=== PATIENT | male | born 1990 | race Caucasian/White ===

== ENCOUNTER 2021-05-06 17:29 | Inpatient (IN) | payer MEDICAID, OTHER ==
--- NOTE | 2021-05-06 18:43 | ED ---
Psych HPI - General Chief Complaint: Psychiatric Symptoms Stated Complaint: EPS eval Time Seen by Provider: 05/06/21 18:20 Source: patient, RN notes reviewed Mode of arrival: ambulatory - History of Present Illness Initial Comments: 30-year-old male with a history of depression who states he ran out of his medications about 3 weeks ago he states she's been feeling depressed and suicidal since then he has not been able to get into see his doctor to get a refill. He denies any drugs or alcohol at this time is a lot of fine factors at this time MD Complaint: suicidal ideation, feels depressed - Related Data Home Medications Medication Instructions Recorded Confirmed No Known Home Medications 05/06/21 05/06/21 Allergies Allergy/AdvReac Type Severity Reaction Status Date / Time No Known Allergies Allergy Verified 05/06/21 19:19 Review of Systems ROS Statement: Those systems with pertinent positive or pertinent negative responses have been documented in the HPI. ROS Other: All systems not noted in ROS Statement are negative. Past Medical History Past Medical History: No Reported History History of Any Multi-Drug Resistant Organisms: None Reported Past Surgical History: No Surgical Hx Reported Past Psychological History: Bipolar, Depression, PTSD Smoking Status: Vaper Past Alcohol Use History: Daily, Heavy, Occasional Past Drug Use History: None Reported General Exam - General Exam Comments Initial Comments: This is a well-developed well-nourished awake alert oriented 3 male General appearance: alert, in no apparent distress Head exam: Present: atraumatic, normocephalic, normal inspection Eye exam: Present: normal appearance, PERRL, EOMI. Absent: scleral icterus, conjunctival injection, periorbital swelling ENT exam: Present: normal exam, mucous membranes moist Neck exam: Present: normal inspection, full ROM. Absent: tenderness, meningismus, lymphadenopathy Respiratory exam: Present: normal lung sounds bilaterally. Absent: respiratory distress, wheezes, rales, rhonchi, stridor Cardiovascular Exam: Present: regular rate, normal rhythm, normal heart sounds. Absent: systolic murmur, diastolic murmur, rubs, gallop, clicks GI/Abdominal exam: Present: soft, normal bowel sounds. Absent: distended, tenderness, guarding, rebound, rigid Extremities exam: Present: normal inspection, full ROM, normal capillary refill. Absent: tenderness, pedal edema, joint swelling, calf tenderness Back exam: Present: normal inspection Neurological exam: Present: alert, oriented X3, CN II-XII intact Psychiatric exam: Present: depressed, flat affect, suicidal ideation Skin exam: Present: warm, dry, intact, normal color. Absent: rash Course Vital Signs 05/06/21 17:43 Temperature 98.8 F Pulse Rate 114 H Respiratory 18 Rate O2 Sat by Pulse 97 Oximetry Medical Decision Making - Medical Decision Making Patient was evaluated by the psychiatric service she will be admitted for inpatient evaluation and treatment. - Lab Data Lab Results 05/06/21 Range/Units 18:05 Urine Color Yellow Urine Appearance Clear (Clear) Urine pH 6.0 (5.0-8.0) Ur Specific [place] 1.029 (1.001-1.035) Urine Protein Trace H (Negative) Urine Glucose (UA) Negative (Negative) Urine Ketones 1+ H (Negative) Urine Blood Negative (Negative) Urine Nitrite Negative (Negative) Urine Bilirubin Negative (Negative) Urine Urobilinogen 3.0 (<2.0) mg/dL Ur Leukocyte Esterase Negative (Negative) Urine Opiates Screen Not Detected (NotDetected) Ur Oxycodone Screen Not Detected (NotDetected) Urine Methadone Screen Not Detected (NotDetected) Ur Propoxyphene Screen Not Detected (NotDetected) Ur Barbiturates Screen Not Detected (NotDetected) U Tricyclic Antidepress Not Detected (NotDetected) Ur Phencyclidine Scrn Not Detected (NotDetected) Ur Amphetamines Screen Not Detected (NotDetected) U Methamphetamines Scrn Not Detected (NotDetected) U Benzodiazepines Scrn Not Detected (NotDetected) Urine Cocaine Screen Not Detected (NotDetected) U Marijuana (THC) Screen Not Detected (NotDetected) Disposition Clinical Impression: Depression, Suicidal ideation Disposition: TRANSFER TO PSYCH HOSP/UNIT Condition: Fair Referrals: None,Stated [Primary Care Provider] - 1-2 days
[2021-05-06 18:44] LABS: Appearance,Urine Clear (Clear); Bilirubin,Urine Negative (Negative); Blood,Urine Negative (Negative); Color,Urine Yellow; Glucose,Urine (UA) Negative (Negative); Ketones,Urine 1+ (Negative); Leukocyte Esterase,Urine Negative (Negative); Nitrite,Urine Negative (Negative); Protein,Urine Trace (Negative); Specific Gravity,Urine 1.029 (1.001-1.035)
[2021-05-06 18:54] LABS: Amphetamine Screen,Urine Not Detected (NotDetected); Barbiturate Screen,Urine Not Detected (NotDetected); Benzodiazepines Screen,Urine Not Detected (NotDetected); Cocaine Screen,Urine Not Detected (NotDetected); Methadone Screen, Urine Not Detected (NotDetected); Opiate Screen,Urine Not Detected (NotDetected); Oxycodone Screen, Urine Not Detected (NotDetected); Phencyclidine Screen,Urine Not Detected (NotDetected); Tricyclic Antidepressant,Urine Not Detected (NotDetected); Urn Cannabinoid Scrn Not Detected (NotDetected)
[2021-05-06] MEDS ORDERED: LORazepam 1 MG TAB PO STA (20:56)
[2021-05-06] MEDS ORDERED: MAG HYDROX/AL HYDROX/SIMETH 30 ML CUP PO PRN (22:52)
[2021-05-06] MEDS ORDERED: ACETAMINOPHEN TAB 325 MG TAB PO PRN (22:52)
[2021-05-06] MEDS ORDERED: HALOPERIDOL LACTATE 5 MG/ML 1 ML VIAL IM PRN (22:52)
[2021-05-06] MEDS ORDERED: MAGNESIUM HYDROXIDE 2,400 MG/10 ML CUP PO PRN (22:52)
[2021-05-06] MEDS ORDERED: LORazepam 2 MG/ML INJ IM PRN (22:55)
[2021-05-07 08:49] LABS: Basophils # (A) 0.1 k/uL (0-0.2); Basophils % (A) 1 %; Eosinophils # (A) 0.3 k/uL (0-0.7); Eosinophils % (A) 7 %; HCT 45.3 % (39.0-53.0); HGB 15.9 gm/dL (13.0-17.5); Lymphocytes # (A) 1.6 k/uL (1.0-4.8); Lymphocytes % (A) 35 %; MCH 31.4 pg (25.0-35.0); MCHC 35.1 g/dL (31.0-37.0); MCV 89.3 fL (80.0-100.0); Monocytes # (A) 0.4 k/uL (0-1.0); Monocytes % (A) 8 %; Neutrophils # (A) 2.3 k/uL (1.3-7.7); Neutrophils % (A) 48 %; Platelet Count 294 k/uL (150-450); RBC 5.08 m/uL (4.30-5.90); WBC 4.7 k/uL (3.8-10.6)
[2021-05-07] MEDS: buPROPion XL 300 MG TAB.ER.24H PO SCH (09:00)
[2021-05-07] MEDS ORDERED: NICOTINE 14MG/24HR PATCH TRANSDERM SCH (09:00)
[2021-05-07 09:09] LABS: ALT 51 U/L (4-49); AST 42 U/L (17-59); African American GFR (CKD) >90 (>60 ml/min/1.73 sqM); Albumin 4.3 g/dL (3.5-5.0); Alkaline Phosphatase 62 U/L (38-126); Anion Gap 9 mmol/L; Blood Urea Nitrogen 10 mg/dL (9-20); Calcium 8.8 mg/dL (8.4-10.2); Carbon Dioxide 27 mmol/L (22-30); Chloride 104 mmol/L (98-107); Glucose 108 mg/dL (74-99); Non-African American GFR(CKD) >90 (>60 ml/min/1.73 sqM); Potassium 4.2 mmol/L (3.5-5.1); Sodium 140 mmol/L (137-145); Total Bilirubin 0.7 mg/dL (0.2-1.3)
--- NOTE | 2021-05-07 09:31 | P.HP ---
Psychiatric H&P - . H&P Date: 05/07/21 History & Physical: Allergies Allergy/AdvReac Type Severity Reaction Status Date / Time No Known Allergies Allergy Verified 05/07/21 00:15 Vital Signs Temp 97.9 F 05/06/21 23:42 Pulse 99 05/06/21 23:42 Resp 15 05/06/21 23:42 BP 130/78 05/06/21 23:42 Pulse Ox 95 05/06/21 23:42 Intake & Output 05/06/21 05/07/21 05/07/21 18:59 06:59 18:59 Weight 99.79 kg 97.692 kg Laboratory Last Values WBC 4.7 k/uL (3.8-10.6) 05/07/21 07:58 RBC 5.08 m/uL (4.30-5.90) 05/07/21 07:58 Hgb 15.9 gm/dL (13.0-17.5) 05/07/21 07:58 Hct 45.3 % (39.0-53.0) 05/07/21 07:58 MCV 89.3 fL (80.0-100.0) 05/07/21 07:58 MCH 31.4 pg (25.0-35.0) 05/07/21 07:58 MCHC 35.1 g/dL (31.0-37.0) 05/07/21 07:58 RDW 13.0 % (11.5-15.5) 05/07/21 07:58 Plt Count 294 k/uL (150-450) 05/07/21 07:58 MPV 7.0 05/07/21 07:58 Neutrophils % 48 % 05/07/21 07:58 Lymphocytes % 35 % 05/07/21 07:58 Monocytes % 8 % 05/07/21 07:58 Eosinophils % 7 % 05/07/21 07:58 Basophils % 1 % 05/07/21 07:58 Neutrophils # 2.3 k/uL (1.3-7.7) 05/07/21 07:58 Lymphocytes # 1.6 k/uL (1.0-4.8) 05/07/21 07:58 Monocytes # 0.4 k/uL (0-1.0) 05/07/21 07:58 Eosinophils # 0.3 k/uL (0-0.7) 05/07/21 07:58 Basophils # 0.1 k/uL (0-0.2) 05/07/21 07:58 Urine Color Yellow 05/06/21 18:05 Urine Appearance Clear (Clear) 05/06/21 18:05 Urine pH 6.0 (5.0-8.0) 05/06/21 18:05 Ur Specific [place] 1.029 (1.001-1.035) 05/06/21 18:05 Urine Protein Trace (Negative) H 05/06/21 18:05 Urine Glucose (UA) Negative (Negative) 05/06/21 18:05 Urine Ketones 1+ (Negative) H 05/06/21 18:05 Urine Blood Negative (Negative) 05/06/21 18:05 Urine Nitrite Negative (Negative) 05/06/21 18:05 Urine Bilirubin Negative (Negative) 05/06/21 18:05 Urine Urobilinogen 3.0 mg/dL (<2.0) 05/06/21 18:05 Ur Leukocyte Esterase Negative (Negative) 05/06/21 18:05 Urine Opiates Screen Not Detected (NotDetected) 05/06/21 18:05 Ur Oxycodone Screen Not Detected (NotDetected) 05/06/21 18:05 Urine Methadone Screen Not Detected (NotDetected) 05/06/21 18:05 Ur Propoxyphene Screen Not Detected (NotDetected) 05/06/21 18:05 Ur Barbiturates Screen Not Detected (NotDetected) 05/06/21 18:05 U Tricyclic Antidepress Not Detected (NotDetected) 05/06/21 18:05 Ur Phencyclidine Scrn Not Detected (NotDetected) 05/06/21 18:05 Ur Amphetamines Screen Not Detected (NotDetected) 05/06/21 18:05 U Methamphetamines Scrn Not Detected (NotDetected) 05/06/21 18:05 U Benzodiazepines Scrn Not Detected (NotDetected) 05/06/21 18:05 Urine Cocaine Screen Not Detected (NotDetected) 05/06/21 18:05 U Marijuana (THC) Screen Not Detected (NotDetected) 05/06/21 18:05 Coronavirus (PCR) Not Detected (Not Detectd) 05/06/21 21:53 05/07/21 08:54. Chief complaint: The patient says that he does have difficulty with alcohol. He gives a clear history of bipolar and has run out of his medicines and had a "meltdown". History of present illness the patient has been tried on a combination of Wellbutrin at 300 mg in the morning Seroquel up to 800 mg at night and Zoloft. He really liked the benefit of the Wellbutrin giving him more energy and focus however the cervical tend to make him too sleepy and hungry. Recently he has been having difficulty getting the medications that he needed. He ran out and was accepted them letting it run out and relapsed. He wants to get help and he wants to get alcohol rehab as well as help with his psychiatric disorder. However he was in a program recently where they did not have any psychiatric care just the rehab. Then his mother and he had to leave the program early. Symptomatology: The patient acknowledges episodes of roland. During these times he has decreased need for sleep increased talking increased energy starts projects he does not finish spends money carelessly and has impulsive poor boundaries then these periods clear and he goes into depression. The depression can be severe to where he lays in bed and does not take care of himself Family history the patient is youngest of 2 children born to his parents who when he was 4 mom had paranoid schizophrenia and dad struggle with alcohol he and his sister lived with the father which was not a good situation. His older sister struggled with depression and committed suicide when the patient was 14 he found her afterward and still has some PTSD from that. Social history the patient was raised in foster homes made to finish high school and 2 years of college as he is an intelligent individual. 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 The patient is tried a lot of different street drugs and abused prescription medicine. He was using too much Xanax recently and became off that suddenly he did have auditory hallucinations briefly but has never had them in connection with his basic illness. His main problem is alcohol and he was struggle with it for months at a time get control briefly in the fall back into it. Mental status exam: The patient is alert cooperative reasonably well-dressed walks with a normal gait and station. He is oriented to person place time and circumstances. He is motivated to work on both the alcohol and bipolar. His short-term memory is adequate he could remember 3 of 3 objects after 3 minutes. General information is good he could name the [place] in [facility] where they were, he can name the last 4 presidents. Abstract thinking is good when asked as well as the same between cats and snakes he said they're both good hunters. But then his generativity is low due to the depression he could only come up with one similarity. When asked to abstract the proverb "the grass looks greater than side effects and said "he said appreciate what you have. He has decreased eye contact and a serious affect but is not tearful is not irritable. Concentration is somewhat impaired when asked to subtract 7 from 93 he said 84, he was able to spell world backwards but it was difficult he had to concentrate very hard. He says he has hope at this time although he was feeling suicidal he feels that if he can get into a rehab and that would give time for the Wellbutrin to kick in and also help him with the substance abuse that that would get him to the place for life would again feel like it was worth living. Plan: I'm going to start him on Wellbutrin 300 mg each morning and this is something he has had before with benefit. I'm not going to start the Zoloft as it tends to irritate the bipolar disorder. We are going to add Geodon because he needs something that does help him sleep but does not make him is lethargic his Seroquel in the last 24 hours a day. Abilify is something we could think of but would not help him sleep. He has never been on lithium or Depakote or Tegretol or Trileptal or Lamictal so we do a lot of other things that we can try. Assessment prognosis is fair as he seems motivated at this time. We will get him on the medicines see if he tolerates them Geodon works rapidly will take 60 mg today and then go to 120 60 at supper and 60 at bedtime starting tomorrow that should begin to kick in on the moods and even the depression fairly fast.
[2021-05-07 10:31] LABS: Appearance,Urine Clear (Clear); Bilirubin,Urine 1+ (Negative); Blood,Urine Negative (Negative); Color,Urine Yellow; Glucose,Urine (UA) Negative (Negative); Ketones,Urine Negative (Negative); Leukocyte Esterase,Urine Small (Negative); Mucus,Urine Many /hpf; Nitrite,Urine Negative (Negative); PH, Urine 6.5 (5.0-8.0); Protein,Urine 1+ (Negative); RBC,Urine 1 /hpf (0-5); Specific Gravity,Urine 1.037 (1.001-1.035); Squamous Epithelial Cell,Urine <1 /hpf (0-4); WBC,Urine 16 /hpf (0-5)
[2021-05-07 10:32] LABS: Amphetamine Screen,Urine Not Detected (NotDetected); Barbiturate Screen,Urine Not Detected (NotDetected); Benzodiazepines Screen,Urine Detected (NotDetected); Cocaine Screen,Urine Not Detected (NotDetected); Methadone Screen, Urine Not Detected (NotDetected); Opiate Screen,Urine Not Detected (NotDetected); Oxycodone Screen, Urine Not Detected (NotDetected); Phencyclidine Screen,Urine Not Detected (NotDetected); Tricyclic Antidepressant,Urine Not Detected (NotDetected); Urn Cannabinoid Scrn Not Detected (NotDetected)
[2021-05-07 12:29] LABS: Chol/HDL Ratio 3.35 Ratio; LDL Cholesterol,Calculated 94.4 mg/dL (0.0-131.0)
[2021-05-07] MEDS: NICOTINE 21MG/24HR PATCH TRANSDERM SCH (17:24)
[2021-05-07] MEDS ORDERED: ZIPRASIDONE 60 MG CAP PO ONE (17:30)
--- NOTE | 2021-05-08 01:28 | P.CONS ---
History of Present Illness - Reason for Consult Consult date: 05/07/21 - History of Present Illness Patient is a 30-year-old male with a PMH of depression and bipolar disorder who had presented to the emergency room with complaints of depression and suicidal ideation. The patient was admitted to the mental health unit where he was seen and evaluated. The patient reports that his medications had recently been changed which she believes is causing his worsening symptoms. He denied any soc ial stressors leading to his symptoms. He also denied any physical complaints at time of interview. Denies pacing chest discomfort, shortness of breath, fever, chills, dysuria, cough, nausea, vomiting, abdominal pain, diarrhea. Denied tobacco or substance abuse. Did endorse drinking 2-3 alcoholic beverages daily. Denied history of delirium tremens or alcohol withdrawal seizures. Review of systems: Pertinent positives and negatives as discussed in HPI, a complete review of systems was performed and all other systems are negative. Physical examination: General: non toxic, no distress, appears at stated age, overweight Derm: no unusual rashes/lesions no unusual ecchymoses, warm, dry Head: atraumatic, normocephalic, symmetric Eyes: EOMI, no lid lag, anicteric sclera, pupils equal round reactive to light ENT: Nose and ears atraumatic, no thrush, no pharyngeal erythema Neck: No thyromegaly, no cervical lymphadenopathy, trachea midline, supple Mouth: no lip lesion, mucus membranes moist Cardiovascular: S1S2 reg, no murmur, positive posterior tibial pulse bilateral, no edema, capillary refill less than 2 seconds Lungs: CTA bilateral, no rhonchi, no rales , no accessory muscle use Abdominal: soft, nontender to palpation, no guarding, no appreciable organomegaly, normal bowel sounds Ext: no gross muscle atrophy, muscle strength 5 out of 5 in all 4 extremities grossly, no contractures, Neuro: CN II-XI grossly intact, light touch intact all 4 extremities, finger to nose within normal limits, Psych: Alert, oriented, appropriate affect Assessment/plan History of alcohol abuse -Monitor for signs of withdrawal -Strongly advised on importance of cessation Depression and bipolar disorder -As per psychiatry Thank you for allowing us to participate in the care of this patient. We will follow peripherally. Do not hesitate to contact us with questions. Someone can be reached from the [facility] hospitalist group at all hours of the day at [phone]. Past Medical History Past Medical History: No Reported History History of Any Multi-Drug Resistant Organisms: None Reported Past Surgical History: No Surgical Hx Reported Past Psychological History: Bipolar, Depression, PTSD Smoking Status: Vaper Past Alcohol Use History: Daily, Heavy, Occasional Past Drug Use History: None Reported Medications and Allergies Home Medications Medication Instructions Recorded Confirmed Type No Known Home Medications 05/06/21 05/07/21 History Allergies Allergy/AdvReac Type Severity Reaction Status Date / Time No Known Allergies Allergy Verified 05/07/21 00:15 Results CBC & Chem 7: 05/07/21 07:58 05/07/21 07:58 Labs: Abnormal Lab Results - Last 24 Hours (Table) 05/07/21 05/07/21 Range/Units 07:58 09:45 Glucose 108 H (74-99) mg/dL ALT 51 H (4-49) U/L Ur Specific [place] 1.037 H (1.001-1.035) Urine Protein 1+ H (Negative) Urine Bilirubin 1+ H (Negative) Ur Leukocyte Esterase Small H (Negative) Urine WBC 16 H (0-5) /hpf Urine Mucus Many H (None) /hpf U Benzodiazepines Scrn Detected H (NotDetected)
[2021-05-08] MEDS: NICOTINE 21MG/24HR PATCH TRANSDERM SCH (09:18)
[2021-05-08] MEDS: buPROPion XL 300 MG TAB.ER.24H PO SCH (09:19)
[2021-05-08] MEDS: LORazepam 1 MG TAB PO PRN ×2 (09:20→17:38)
--- NOTE | 2021-05-08 11:42 | P.PN ---
Subjective Progress Note Date: 05/08/21 Principal diagnosis: Bipolar 1 manic/alcohol use disorder Subjective: We started him on Geodon yesterday. He doesn't the Geodon at supper time with full and he is a little tired but no dizziness no akathisia and not as tired as he was on Seroquel. He remembers that when he took the Seroquel for a while the tiredness went away and he assumes this will do the same thing. He s till feeling really depressed but understands that medicines take a while to work. He said he did sleep well while last night appetite is good but not excessive no dizziness and dry mouth or constipation. Objective sad affect somewhat slow responses, alert, cooperative, gait and station normal, oriented to person place time and circumstances, attending groups, denies any suicidality or homicidality just not sure how the future is going to unfold. No psychotic symptoms Assessment he is on good medicine but it will take some time to stabilize moods Plan no change in medicine Objective - Vital Signs Vital signs: Vital Signs Temp 97.8 F 05/08/21 06:44 Pulse 62 05/08/21 06:44 Resp 14 05/08/21 06:44 BP 119/71 05/08/21 06:44 Pulse Ox 95 05/06/21 23:42 Intake & Output 05/07/21 05/08/21 05/08/21 18:59 06:59 18:59 Weight 98.3 kg - Labs CBC & Chem 7: 05/07/21 07:58 05/07/21 07:58
[2021-05-08] MEDS: ZIPRASIDONE 60 MG CAP PO SCH ×2 (17:37→20:12)
[2021-05-09 06:47] VITALS: RESP 16
[2021-05-09] MEDS: NICOTINE 21MG/24HR PATCH TRANSDERM SCH (08:49)
[2021-05-09] MEDS: buPROPion XL 300 MG TAB.ER.24H PO SCH (08:49)
[2021-05-09] MEDS: LORazepam 1 MG TAB PO PRN ×2 (08:51→20:38)
--- NOTE | 2021-05-09 14:23 | P.PN ---
Progress Note - Text Progress Note Date: 05/09/21 Interval History: Patient was seen taking part in activities group today and was directable and agreeable to speak with blurb writer in the office. Patient claims that he is still feeling "horrible" and described worthlessness and hopelessness. He states that his medications were changed around on him over the weekend and claims that he feels he is not getting the right attention. He states that he ran out of medications before coming into the hospital and has been off medications for several weeks. He states that he has been using alcohol and wants [place] and rehab however is waiting for an intake date. He states that he still feeling depressed anxious and still having suicidal thoughts however no intent or plan today. He states that he is not sleeping well at nighttime. At this time patient denies any homical ideations, intent or plan. Patient denies any auditory, visual hallucinations and denies any paranoia or delusions. Patient denies any side effects from the medications and has been compliant with meds. Mental Status Exam: General Appearance: Patient appears to be stated age is alert, directable, and attempts to be cooperative. Behavior: Patient is calmly seated without any agitated behavior. Speech: Patient's speech is fluent and nonpressured. Soft tone Mood/Affect: Mood is improving mildly, affect is congruent and constricted. Suicidality/Homicidality: Patient denies having any suicidal or homicidal ideation intent or plan. Perceptions: Patient denies any visual hallucinations and denies any auditory hallucinations Though content/process: There is no evidence of any delusional thought content and thought process is linear and goal-directed. Focused on his medications. Memory and concentration: AOX3, grossly intact for the purposes of this session Judgment and insight: Poor, Improving mildly Assessment Bipolar disorder, current episode depressed Alcohol abuse Nicotine dependence Plan: -Patient continues to meet criteria for inpatient psychiatric admission for symptom stabilization and safety. Patient has signed adult voluntary form and medication consent and was placed in patient's chart. -Medications: Discontinue Geodon due to poor tolerability, we'll start Seroquel 100 mg daily at bedtime for mood stabilization/insomnia. Start Zoloft 25 mg daily for mood/anxiety, continue with Wellbutrin 300 mg daily for mood. -When necessary Ativan and Haldol for agitation/aggression. -NRT - nicotine patch -SW on board for discharge planning. Encouraged the patient to participate in milieu. Likely discharge in 2-3 days to rehab once we get an intake date at [place].
[2021-05-09] MEDS: SERTRALINE 25 MG TAB PO SCH (14:51)
[2021-05-09] MEDS ORDERED: QUEtiapine 100 MG TAB PO SCH (21:00)
[2021-05-10] MEDS: buPROPion XL 300 MG TAB.ER.24H PO SCH (08:37)
[2021-05-10] MEDS: NICOTINE 21MG/24HR PATCH TRANSDERM SCH (08:37)
[2021-05-10] MEDS: SERTRALINE 25 MG TAB PO SCH (08:37)
[2021-05-10] MEDS: LORazepam 1 MG TAB PO PRN (08:39)
--- NOTE | 2021-05-10 11:24 | P.PN ---
Progress Note - Text Progress Note Date: 05/10/21 Patient was seen wandering the hallways this morning and was approached by telegraphic typewriter repairer and agreeable to speak in the office today. He states that he is doing better today in terms of his mood and anxiety. He states that he is unsure about where he will be going upon discharge and claims that he does not know the plan. He claims that he still wants to go to rehab and has an intake date on in the morning at [place] which she plans to go to. He states that he feels unsure whether he is going to use or not. He states he was able to sleep a bit better last night however was requesting to have his Seroquel increased to help with his mood lability. He states that he slept fairly last night. He claims that he is trying to go to some groups. He does appear to be more future oriented today. Improving appetite. At this time patient denies any homical ideations, intent or plan. Patient denies any auditory, visual hallucinations and denies any paranoia or delusions. Patient denies any side effects from the medications and has been compliant with meds. Mental Status Exam: General Appearance: Patient appears to be stated age is alert, directable, and attempts to be cooperative. argumentative at the end of the interview Behavior: Patient is calmly seated without any agitated behavior. Speech: Patient's speech is fluent and nonpressured. Mood/Affect: Mood is improving mildly, affect is congruent and constricted. Suicidality/Homicidality: Patient denies having any suicidal or homicidal ideation intent or plan. Perceptions: Patient denies any visual hallucinations and denies any auditory hallucinations Though content/process: There is no evidence of any delusional thought content and thought process is linear and goal-directed. Focused on his medications Memory and concentration: AOX3, grossly intact for the purposes of this session Judgment and insight: Improving mildly Assessment Bipolar disorder, current episode depressed Alcohol abuse Nicotine dependence Plan: -Patient continues to meet criteria for inpatient psychiatric admission for symptom stabilization and safety. Patient has signed adult voluntary form and medication consent and was placed in patient's chart. -Medications: increase Seroquel 200 mg daily at bedtime for mood stabilization/ insomnia. Zoloft 25 mg daily for mood/anxiety, continue with Wellbutrin 300 mg daily for mood. -When necessary Ativan and Haldol for agitation/aggression. -NRT - nicotine patch - on board for discharge planning. Encouraged the patient to participate in milieu. Likely discharge tomorrow to [facility] and he will take him to his intake appt at morning.
[2021-05-10] MEDS ORDERED: QUEtiapine 200 MG TAB PO SCH (21:00)
[2021-05-11 07:10] VITALS: BP 120/77; PULSE 82; TEMP 97.7
[2021-05-11] MEDS: buPROPion XL 300 MG TAB.ER.24H PO SCH (07:43)
[2021-05-11] MEDS: NICOTINE 21MG/24HR PATCH TRANSDERM SCH (07:43)
[2021-05-11] MEDS: SERTRALINE 25 MG TAB PO SCH (07:43)
--- NOTE | 2021-05-11 10:47 | P.DS ---
Providers Date of admission: 05/06/21 22:41 Expected date of discharge: 05/11/21 Attending physician: Larry Campbell MD Consults: 05/06/21 22:52 Consult Physician Routine Consulting Provider: Cristela Liu Consult Reason/Comments: medical management Do you want consulting provider notified?: Yes, Notify in am Primary care physician: Stated None - Discharge Diagnosis(es) (1) Bipolar disorder current episode depressed Current Visit: Yes Status: Acute Priority: High (2) Alcohol abuse Current Visit: Yes Status: Acute Priority: Medium (3) Nicotine dependence Current Visit: Yes Status: Acute Priority: Low Hospital Course: Admission HPI: Admission note was completed by Dr Valle "[The patient says that he does have difficulty with alcohol. He gives a clear history of bipolar and has run out of his medicines and had a "meltdown". The patient has been tried on a combination of Wellbutrin at 300 mg in the morning Seroquel up to 800 mg at night and Zoloft. He really liked the benefit of the Wellbutrin giving him more energy and focus however the cervical tend to make him too sleepy and hungry. Recently he has been having difficulty getting the medications that he needed. He ran out and was accepted them letting it run out and relapsed. He wants to get help and he wants to get alcohol rehab as well as help with his psychiatric disorder. However he was in a program recently where they did not have any psychiatric care just the rehab. Then his mother and he had to leave the program early. The patient acknowledges episodes of roland. During these times he has decreased need for sleep increased talking increased energy starts projects he does not finish spends money carelessly and has impulsive poor boundaries then these periods clear and he goes into depression. The depression can be severe to where he lays in bed and does not take care of himself]" Hospital course: Upon admission to the unit patient was [directable and agreeable to commence treatment and signed adult voluntary form] . Patient got along well with other patients on the unit and followed unit protocol. Patient was compliant with the medications and denied any side effects throughout hospital course. Patient was started on Seroquel and increased her dose of 200 mg daily at bedtime for mood stabilization/insomnia, Zoloft 25 mg daily for mood/anxiety, Wellbutrin XL 300 mg daily for mood.. Patient spoke of [his] stressors and engaged in therapy both group and individual. Patient was also seen by medical team for history and physical exam. [] Throughout the course of the hospitalization patient gradually improved with regards to [mood, anxiety], sleep and [became more future oriented with improved insight and judgment]. On the day of discharge patient denied any suicidal or homicidal ideations intent or plan denied any auditory or visual hallucinations. Patient endorsed wanting to live for his daughter and his future. He also claims that he wants to live for his sobriety. The patient denied any access to guns or weapons. Patient denied any paranoia and did not endorse any delusions. Patient does have a significant history of substance abuse [and] was counseled on abstaining from all substances including alcohol and marijuana. Patient called the access line and made an intake appointment for tomorrow at [facility]. He claims that he needs to gather his belongings and visit with his daughter out of town before going back into rehab tomorrow morning. He will be staying at a hotel overnight with a voucher and will be picked up by and taken to rehab tomorrow morning. Patient was also counseled on the medications and need for regular compliance and was encouraged to follow-up with their outpatient appointment for mental health and also for primary care. [] Mental status exam: General Appearance: Patient appears to be []stated age is alert, pleasant, and cooperative. Patient is in no acute distress and has improved hygiene and grooming Behavior: Patient is calmly seated without any agitated behavior. Speech: Patient's speech is fluent and nonpressured. Mood/Affect: Patient reports their mood is "[better]", affect is congruent and euthymic. Suicidality/Homicidality: Patient denies having any suicidal or homicidal ideation intent or plan. Perceptions: Patient denies any auditory or visual hallucinations. Though content/process: There is no evidence of any delusional thought content and thought process is linear and goal-directed. [more future oriented] Memory and concentration: AOX3, grossly intact for the purposes of this session. Can spell "WORLD" backwards correctly. Judgment and insight: [chronically poor, however has] improved with guarded prognosis Impression: Bipolar disorder, current episode depressed Alcohol abuse [Nicotine dependence] Plan: -Continue with discharge today as patient has improved and stabilized psychiatrically and is not currently an imminent threat to [himself] and/or others. [Patient will remain at chronically elevated risk for harm to self and/or others due to his impulsivity and substance abuse.] -Continue medications: Seroquel 200 mg daily at bedtime for mood stabilization/insomnia, Zoloft 25 mg daily for mood/anxiety, Wellbutrin 300 mg XL 4 mood. Patient declined any alcohol craving medications at this time. -Patient was counseled on the need for medication compliance and appropriate follow-up at mental health and also primary care for medical issues. Patient verbalized understanding and agreed. -Social work to [arrange for and conduct family meeting to ensure safety upon discharge and answer any questions/concerns.] Social work also to arrange for patients follow up appointments [with [facility]] for psychiatric care along with follow up with primary care provider. -Patient counseled on abstaining from recreational drugs and marijuana and alcoh ol. Was informed/educated on the adverse effects on their physical and mental health. [Patient verbally agreed and understood]. Patient will be going to his [facility] rehab intake appointment tomorrow morning and will be picked up by [facility] -Patient was instructed to return to the hospital or seek immediate medical care if their psychiatric or medical symptoms do worsen or reoccur. Allergies Allergy/AdvReac Type Severity Reaction Status Date / Time No Known Allergies Allergy Verified 05/07/21 00:15 Laboratory Results WBC 4.7 k/uL (3.8-10.6) 05/07/21 07:58 RBC 5.08 m/uL (4.30-5.90) 05/07/21 07:58 Hgb 15.9 gm/dL (13.0-17.5) 05/07/21 07:58 Hct 45.3 % (39.0-53.0) 05/07/21 07:58 MCV 89.3 fL (80.0-100.0) 05/07/21 07:58 MCH 31.4 pg (25.0-35.0) 05/07/21 07:58 MCHC 35.1 g/dL (31.0-37.0) 05/07/21 07:58 RDW 13.0 % (11.5-15.5) 05/07/21 07:58 Plt Count 294 k/uL (150-450) 05/07/21 07:58 MPV 7.0 05/07/21 07:58 Neutrophils % 48 % 05/07/21 07:58 Lymphocytes % 35 % 05/07/21 07:58 Monocytes % 8 % 05/07/21 07:58 Eosinophils % 7 % 05/07/21 07:58 Basophils % 1 % 05/07/21 07:58 Neutrophils # 2.3 k/uL (1.3-7.7) 05/07/21 07:58 Lymphocytes # 1.6 k/uL (1.0-4.8) 05/07/21 07:58 Monocytes # 0.4 k/uL (0-1.0) 05/07/21 07:58 Eosinophils # 0.3 k/uL (0-0.7) 05/07/21 07:58 Basophils # 0.1 k/uL (0-0.2) 05/07/21 07:58 Sodium 140 mmol/L (137-145) 05/07/21 07:58 Potassium 4.2 mmol/L (3.5-5.1) 05/07/21 07:58 Chloride 104 mmol/L (98-107) 05/07/21 07:58 Carbon Dioxide 27 mmol/L (22-30) 05/07/21 07:58 Anion Gap 9 mmol/L 05/07/21 07:58 BUN 10 mg/dL (9-20) 05/07/21 07:58 Creatinine 0.76 mg/dL (0.66-1.25) 05/07/21 07:58 Est GFR (CKD-EPI)AfAm >90 (>60 ml/min/1.73 sqM) 05/07/21 07:58 Est GFR (CKD-EPI)NonAf >90 (>60 ml/min/1.73 sqM) 05/07/21 07:58 Glucose 108 mg/dL (74-99) H 05/07/21 07:[address] Glu mg/dL 103 05/07/21 07:58 Hemoglobin A1c 5.2 % (0.0-6.0) 05/07/21 07:58 Calcium 8.8 mg/dL (8.4-10.2) 05/07/21 07:58 Total Bilirubin 0.7 mg/dL (0.2-1.3) 05/07/21 07:58 AST 42 U/L (17-59) 05/07/21 07:58 ALT 51 U/L (4-49) H 05/07/21 07:58 Alkaline Phosphatase 62 U/L (38-126) 05/07/21 07:58 Total Protein 7.0 g/dL (6.3-8.2) 05/07/21 07:58 Albumin 4.3 g/dL (3.5-5.0) 05/07/21 07:58 Triglycerides 117.00 mg/dL (0.00-149.00) 05/07/21 07:58 Cholesterol 168.00 mg/dL (0.00-200.00) 05/07/21 07:58 LDL Cholesterol, Calc 94.4 mg/dL (0.0-131.0) 05/07/21 07:58 VLDL Cholesterol, Calc 23.40 mg/dL (5.00-40.00) 05/07/21 07:58 HDL Cholesterol 50.20 mg/dL (40.00-60.00) 05/07/21 07:58 Cholesterol/HDL Ratio 3.35 Ratio 05/07/21 07:58 TSH 2.290 mIU/L (0.465-4.680) 05/07/21 07:58 Urine Color Yellow 05/07/21 09:45 Urine Appearance Clear (Clear) 05/07/21 09:45 Urine pH 6.5 (5.0-8.0) 05/07/21 09:45 Ur Specific [place] 1.037 (1.001-1.035) H 05/07/21 09:45 Urine Protein 1+ (Negative) H 05/07/21 09:45 Urine Glucose (UA) Negative (Negative) 05/07/21 09:45 Urine Ketones Negative (Negative) 05/07/21 09:45 Urine Blood Negative (Negative) 05/07/21 09:45 Urine Nitrite Negative (Negative) 05/07/21 09:45 Urine Bilirubin 1+ (Negative) H 05/07/21 09:45 Urine Urobilinogen 4.0 mg/dL (<2.0) 05/07/21 09:45 Ur Leukocyte Esterase Small (Negative) H 05/07/21 09:45 Urine RBC 1 /hpf (0-5) 05/07/21 09:45 Urine WBC 16 /hpf (0-5) H 05/07/21 09:45 Ur Squamous Epith Cells <1 /hpf (0-4) 05/07/21 09:45 Urine Mucus Many /hpf (None) H 05/07/21 09:45 Urine Opiates Screen Not Detected (NotDetected) 05/07/21 09:45 Ur Oxycodone Screen Not Detected (NotDetected) 05/07/21 09:45 Urine Methadone Screen Not Detected (NotDetected) 05/07/21 09:45 Ur Propoxyphene Screen Not Detected (NotDetected) 05/07/21 09:45 Ur Barbiturates Screen Not Detected (NotDetected) 05/07/21 09:45 U Tricyclic Antidepress Not Detected (NotDetected) 05/07/21 09:45 Ur Phencyclidine Scrn Not Detected (NotDetected) 05/07/21 09:45 Ur Amphetamines Screen Not Detected (NotDetected) 05/07/21 09:45 U Methamphetamines Scrn Not Detected (NotDetected) 05/07/21 09:45 U Benzodiazepines Scrn Detected (NotDetected) H 05/07/21 09:45 Urine Cocaine Screen Not Detected (NotDetected) 05/07/21 09:45 U Marijuana (THC) Screen Not Detected (NotDetected) 05/07/21 09:45 Coronavirus (PCR) Not Detected (Not Detectd) 05/06/21 21:53 Vital Signs Temp 97.7 F 05/11/21 06:26 Pulse 82 05/11/21 06:26 Resp 16 05/11/21 06:26 BP 120/77 05/11/21 06:26 Pulse Ox 98 05/10/21 07:00 Patient Condition at Discharge: Stable Plan - Discharge Summary New Discharge Prescriptions: New Nicotine 21Mg/24Hr Patch [Habitrol] 1 patch TRANSDERM DAILY 14 Days patch Sertraline [Zoloft] 25 mg PO DAILY 30 Days tab QUEtiapine [SEROquel] 200 mg PO HS 30 Days tab buPROPion XL [Wellbutrin XL] 300 mg PO DAILY 30 Days tablet Discharge Medication List Nicotine 21Mg/24Hr Patch [Habitrol] 1 patch TRANSDERM DAILY 14 Days patch 05/11/21 [Rx] QUEtiapine [SEROquel] 200 mg PO HS 30 Days tab 05/11/21 [Rx] Sertraline [Zoloft] 25 mg PO DAILY 30 Days tab 05/11/21 [Rx] buPROPion XL [Wellbutrin XL] 300 mg PO DAILY 30 Days tablet 05/11/21 [Rx] Follow up Appointment(s)/Referral(s): [facility] [Outside] - 05/12/21 10:45 am (05/12 @ 10:45am- intake at [facility]) None,Stated [Primary Care Provider] - 1-2 days Discharge Disposition: OTHER INSTITUTION NOT DEFINED
== END 2021-05-11 12:03 | DRG 885 ==
LOC: EC 17:29 → 3MHU 22:41
PROVIDERS: ADMIT Psychiatry & Neurology Psychiatry; ATTEND Psychiatry & Neurology Psychiatry
DX: F31.30 Bipolar disorder, current episode depressed, mild or moderate severity, unspecified (principal); F10.10 Alcohol abuse, uncomplicated; F17.200 Nicotine dependence, unspecified, uncomplicated; F43.10 Post-traumatic stress disorder, unspecified; G47.00 Insomnia, unspecified; Z79.899 Other long term (current) drug therapy; Z81.8 Family history of other mental and behavioral disorders; Z20.822 Contact with and (suspected) exposure to COVID-19
CPT/HCPCS: 80053; 80061; 80306; 81001; 81003; 82075; 83036; 84443; 85025; 87635; 99285

== ENCOUNTER 2023-06-17 12:33 | Inpatient (IN) | payer MEDICAID, OTHER ==
--- NOTE | 2023-06-17 13:31 | ED ---
General Adult HPI - General Chief complaint: Psychiatric Symptoms Stated complaint: Hearing voices, depression Time Seen by Provider: 06/17/23 13:15 Source: patient, RN notes reviewed Mode of arrival: ambulatory Limitations: no limitations - History of Present Illness Initial comments: Patient is a 32-year-old male presenting to the emergency department for mental health evaluation. Patient has been off his medications for the past year. Patient does hear voices. Patient does have thoughts of self-harm. Patient has been drinking 1/5 of alcohol plus additional beer daily. No new physical complaints. Patient questions if he sometimes seeing things. - Related Data Home Medications Medication Instructions Recorded Confirmed No Known Home Medications 06/17/23 06/17/23 Allergies Allergy/AdvReac Type Severity Reaction Status Date / Time No Known Allergies Allergy Verified 05/07/21 00:15 Review of Systems ROS Statement: Those systems with pertinent positive or pertinent negative responses have been documented in the HPI. ROS Other: All systems not noted in ROS Statement are negative. Constitutional: Denies: fever Eyes: Denies: eye pain ENT: Denies: ear pain Respiratory: Denies: cough, dyspnea Cardiovascular: Denies: chest pain Genitourinary: Denies: dysuria Musculoskeletal: Denies: back pain Skin: Denies: lesions Psychiatric: Reports: as per HPI, depression, auditory hallucinations, suicidal thoughts Past Medical History Past Medical History: No Reported History History of Any Multi-Drug Resistant Organisms: None Reported Past Surgical History: No Surgical Hx Reported Past Psychological History: Bipolar, Depression, PTSD Smoking Status: Vaper Past Alcohol Use History: Daily, Heavy, Occasional Past Drug Use History: None Reported General Exam Limitations: no limitations General appearance: alert, in no apparent distress Head exam: Present: normocephalic Eye exam: Present: normal appearance, PERRL, nystagmus ENT exam: Present: normal oropharynx Neck exam: Present: normal inspection Respiratory exam: Present: normal lung sounds bilaterally Cardiovascular Exam: Present: regular rate, normal rhythm GI/Abdominal exam: Present: soft. Absent: tenderness Extremities exam: Present: normal inspection Neurological exam: Present: alert Psychiatric exam: Present: depressed, flat affect Skin exam: Present: normal color Course Vital Signs 06/17/23 12:39 Temperature 98.5 F Pulse Rate 100 Respiratory 20 Rate Blood Pressure 138/85 O2 Sat by Pulse 98 Oximetry Medical Decision Making - Medical Decision Making Was pt. sent in by a medical professional or institution ([facility], [employer], urgent care, hospital, or long term...) When possible be specific @ -No Did you speak to anyone other than the patient for history (EMS, parent, family, police, friend...)? What history was obtained from this source @ -No Did you review nursing and triage notes (agree or disagree)? Why? @ -I reviewed and agree with nursing and triage notes Were old charts reviewed (outside hosp., previous admission, EMS record, old EKG, old radiological studies, urgent care reports/EKG's, long term records)? Report findings @ -No old charts were reviewed Differential Diagnosis (chest pain, altered mental status, abdominal pain women, abdominal pain men, vaginal bleeding, weakness, fever, dyspnea, syncope, headache, dizziness, GI bleed, back pain, seizure, CVA, palpatations, mental health, musculoskeletal)? @ -Differential Mental Health Depression, anxiety, bipolar, psychosis, schizophrenia, borderline personality, situational depression, adjustment disorder, behavioral disorder, brain tumor, malingering, substance abuse, encephalopathy, medication reaction, dementia, hypothyroidism, degenerative neurologic disorder, lupus.... This is not meant to be all-inclusive list EKG interpreted by me (3pts min.). @ -As above X-rays interpreted by me (1pt min.). @ -None done CT interpreted by me (1pt min.). @ -None done U/S interpreted by me (1pt. min.). @ -None done What testing was considered but not performed or refused? (CT, X-rays, U/S, labs)? Why? @ -None What meds were considered but not given or refused? Why? @ -None Did you discuss the management of the patient with other professionals (professionals i.e. [facility], [employer], lab, RT, psych nurse, social service coordinator, courtroom deputy or calendar clerk, teacher, toxics program officer, field nurse case manager)? Give summary @ -Case was discussed with psychiatric nurse with plan for psychiatric admission or transfer. Was smoking cessation discussed for >3mins.? @ -No Was critical care preformed (if so, how long)? @ -31 minutes critical care to Were there social determinants of health that impacted care today? How? (Homelessness, low income, unemployed, alcoholism, drug addiction, transportation, low edu. Level, literacy, decrease access to med. care, residential, rehab)? @ -No Was there de-escalation of care discussed even if they declined (Discuss DNR or withdrawal of care, Hospice)? DNR status @ -No What co-morbidities impacted this encounter? (DM, HTN, Smoking, COPD, CAD, Cancer, CVA, ARF, Chemo, Hep., AIDS, mental health diagnosis, sleep apnea, morbid obesity)? @ -None Was patient admitted / discharged? Hospital course, mention meds given and route, prescriptions, significant lab abnormalities, going to OR and other pertinent info. @ -Patient presents with depression and hallucinations and suicidal thoughts. Patient will be admitted for psychiatric care. Positive clinical certificate is completed. Undiagnosed new problem with uncertain prognosis? @ -No Drug Therapy requiring intensive monitoring for toxicity (Heparin, Nitro, Insulin, Cardizem)? @ -No Were any procedures done? @ -No Diagnosis/symptom? @ -Depression, suicidal ideation Acute, or Chronic, or Acute on Chronic? @ -Acute, acute Uncomplicated (without systemic symptoms) or Complicated (systemic symptoms)? @ -Default Side effects of treatment? @ -No Exacerbation, Progression, or Severe Exacerbation? @ -No Poses a threat to life or bodily function? How? (Chest pain, USA, LA, pneumonia, PE, COPD, DKA, ARF, appy, cholecystitis, CVA, Diverticulitis, Homicidal, Suicidal, threat to staff... and all critical care pts) @ -Central threat to life through suicidal ideation with plan - Lab Data Lab Results 06/17/23 Range/Units 13:50 Urine Opiates Screen Not Detected (NotDetected) Ur Oxycodone Screen Not Detected (NotDetected) Urine Methadone Screen Not Detected (NotDetected) Ur Barbiturates Screen Not Detected (NotDetected) U Tricyclic Antidepress Not Detected (NotDetected) Ur Phencyclidine Scrn Not Detected (NotDetected) Ur Amphetamines Screen Not Detected (NotDetected) U Methamphetamines Scrn Not Detected (NotDetected) U Benzodiazepines Scrn Not Detected (NotDetected) Urine Cocaine Screen Not Detected (NotDetected) U Marijuana (THC) Screen Detected H (NotDetected) Disposition Clinical Impression: Suicidal ideation, Depression Disposition: TRANSFER TO PSYCH HOSP/UNIT Is patient prescribed a controlled substance at d/c from ED?: No Referrals: None,Stated [Primary Care Provider] - 1-2 days Time of Disposition: 16:18
[2023-06-17 14:12] LABS: Amphetamine Screen,Urine Not Detected (NotDetected); Barbiturate Screen,Urine Not Detected (NotDetected); Benzodiazepines Screen,Urine Not Detected (NotDetected); Cocaine Screen,Urine Not Detected (NotDetected); Methadone Screen, Urine Not Detected (NotDetected); Opiate Screen,Urine Not Detected (NotDetected); Oxycodone Screen, Urine Not Detected (NotDetected); Phencyclidine Screen,Urine Not Detected (NotDetected); Tricyclic Antidepressant,Urine Not Detected (NotDetected); Urn Cannabinoid Scrn Detected (NotDetected)
[2023-06-17] MEDS ORDERED: LORazepam 0.5 MG TAB PO PRN (16:15)
[2023-06-17] MEDS ORDERED: LORazepam 1 MG TAB PO PRN (16:15)
[2023-06-17] MEDS: LORazepam 1 MG TAB PO PRN (17:46)
[2023-06-17] MEDS: ONDANSETRON ODT 4 MG TAB PO STA (17:59)
[2023-06-17 22:34] LABS: African American GFR (CKD) >90 (>60 ml/min/1.73 sqM); Anion Gap 11 mmol/L; Blood Urea Nitrogen 7 mg/dL (9-20); Carbon Dioxide 23 mmol/L (22-30); Chloride 99 mmol/L (98-107); Glucose 114 mg/dL (74-99); Non-African American GFR(CKD) >90 (>60 ml/min/1.73 sqM); Potassium 3.7 mmol/L (3.5-5.1); Sodium 133 mmol/L (137-145)
[2023-06-17 22:54] LABS: Appearance,Urine Clear (Clear); Bilirubin,Urine Negative (Negative); Blood,Urine Negative (Negative); Color,Urine Colorless; Glucose,Urine (UA) Negative (Negative); Ketones,Urine Negative (Negative); Leukocyte Esterase,Urine Negative (Negative); Nitrite,Urine Negative (Negative); Protein,Urine Negative (Negative); Specific Gravity,Urine 1.011 (1.001-1.035); Urobilinogen,Urine <2.0 mg/dL (<2.0)
[2023-06-17 23:55] LABS: Basophils # (A) 0.1 k/uL (0-0.2); Basophils % (A) 2 %; Eosinophils # (A) 0.3 k/uL (0-0.7); Eosinophils % (A) 6 %; HCT 43.5 % (39.0-53.0); HGB 15.5 gm/dL (13.0-17.5); Lymphocytes # (A) 1.4 k/uL (1.0-4.8); Lymphocytes % (A) 32 %; MCH 32.4 pg (25.0-35.0); MCHC 35.6 g/dL (31.0-37.0); Mean Platelet Volume 8.4; Monocytes # (A) 0.3 k/uL (0-1.0); Monocytes % (A) 6 %; Neutrophils # (A) 2.4 k/uL (1.3-7.7); Neutrophils % (A) 53 %; Platelet Count 177 k/uL (150-450); RBC 4.78 m/uL (4.30-5.90); RDW 12.9 % (11.5-15.5); WBC 4.5 k/uL (3.8-10.6)
[2023-06-18] MEDS: THIAMINE 100 MG/ML 2 ML VIAL IM STA (07:56)
[2023-06-18] MEDS: THIAMINE 100 MG TAB PO SCH (11:06)
[2023-06-18] MEDS: LORazepam 1 MG TAB PO PRN ×2 (12:38→16:04)
[2023-06-18] MEDS ORDERED: ACETAMINOPHEN TAB 325 MG TAB PO PRN (14:30)
[2023-06-18] MEDS ORDERED: haloperidoL 5 MG TAB PO PRN (14:30)
[2023-06-18] MEDS ORDERED: HALOPERIDOL LACTATE 5 MG/ML 1 ML VIAL IM PRN (14:30)
[2023-06-18] MEDS ORDERED: MAG HYDROX/AL HYDROX/SIMETH 355 ML BOTTLE PO PRN (14:30)
[2023-06-18] MEDS ORDERED: MAGNESIUM HYDROXIDE 2,400 MG/30 ML CUP PO PRN (14:30)
[2023-06-18] MEDS ORDERED: LORazepam 2 MG/ML INJ IM PRN (14:30)
[2023-06-18] MEDS: NICOTINE 14MG/24HR PATCH TRANSDERM SCH (16:05)
--- NOTE | 2023-06-19 01:33 | P.CONS ---
History of Present Illness - Reason for Consult Consult date: 06/19/23 - History of Present Illness The patient is a 32-year-old male with a PMH of bipolar disorder, alcohol abuse, and tobacco abuse with history of delirium tremens who presented to the emergency room for psychiatric evaluation as he had been off his medications and reported hallucinations. Patient was admitted to the mental health unit where he was seen and evaluated. Patient reports that he continues to drink 1/5 of hard liquor daily along with 4 24 ounce beers daily. Notes that his last drink was 2 days ago. Reports feeling somewhat shaky but denies any additional complaints. Does report having some insomnia. Denied experiencing chest discomfort, shortness of breath, fever, chills, cough, nausea, vomiting, ab dominal pain, diarrhea. Review of systems: Pertinent positives and negatives as discussed in HPI, a complete review of systems was performed and all other systems are negative. Physical examination: General: non toxic, no distress, appears at stated age, normal weight Derm: no unusual rashes/lesions, no unusual ecchymoses, warm, dry Head: atraumatic, normocephalic, symmetric Eyes: EOMI, no lid lag, anicteric sclera ENT: Nose and ears atraumatic, no thrush, no pharyngeal erythema Neck: trachea midline, supple Mouth: no lip lesion, mucus membranes moist Cardiovascular: S1S2 reg, no murmur, no edema Lungs: CTA bilateral, no rhonchi, no rales , no accessory muscle use Abdominal: soft, nontender to palpation, no guarding Ext: no gross muscle atrophy, no contractures, Neuro: No gross focal neuro deficits noted Psych: Alert, oriented, appropriate affect Assessment: Alcohol abuse Hyponatremia Polysubstance abuse Hallucinations with history of bipolar disorder Imaging: None performed Data Review: Laboratory evaluation remarkable for sodium 133, WBC count 4.5, hemoglobin 15.5, glucose 114, urine toxicology positive for marijuana Plan: [facility] protocol Advised on the importance of cessation from substance use Monitor BMP Defer management of bipolar disorder and hallucinations to primary psychiatry service Thank you for allowing us to participate in the care of this patient. We will follow peripherally. Do not hesitate to contact us with questions. Someone can be reached from the [facility] hospitalist group at all hours of the day at [phone]. Past Medical History Past Medical History: No Reported History History of Any Multi-Drug Resistant Organisms: None Reported Past Surgical History: No Surgical Hx Reported Past Psychological History: Bipolar, Depression, PTSD Smoking Status: Vaper Past Alcohol Use History: Daily, Heavy, Occasional Past Drug Use History: None Reported Medications and Allergies Home Medications Medication Instructions Recorded Confirmed Type No Known Home Medications 06/17/23 06/17/23 History Allergies Allergy/AdvReac Type Severity Reaction Status Date / Time No Known Allergies Allergy Verified 05/07/21 00:15 Physical Exam Vitals: Vital Signs Temp Pulse Resp BP Pulse Ox 06/18/23 12:00 100 20 130/60 98 06/18/23 07:47 97.5 F L 77 16 138/94 98 Results CBC & Chem 7: 06/17/23 21:45 06/17/23 21:45
[2023-06-19 11:46] LABS: African American GFR (CKD) >90 (>60 ml/min/1.73 sqM); Anion Gap 7 mmol/L; Blood Urea Nitrogen 8 mg/dL (9-20); Calcium 9.6 mg/dL (8.4-10.2); Carbon Dioxide 26 mmol/L (22-30); Chloride 104 mmol/L (98-107); Glucose 113 mg/dL (74-99); Non-African American GFR(CKD) >90 (>60 ml/min/1.73 sqM); Potassium 4.3 mmol/L (3.5-5.1); Sodium 137 mmol/L (137-145)
--- NOTE | 2023-06-19 15:34 | P.HP ---
Psychiatric H&P - . H&P Date: 06/19/23 History & Physical: Allergies Allergy/AdvReac Type Severity Reaction Status Date / Time No Known Allergies Allergy Verified 05/07/21 00:15 Vital Signs Temp 98.1 F 06/19/23 06:30 Pulse 81 06/19/23 06:30 Resp 18 06/19/23 06:30 BP 132/90 06/19/23 06:30 Pulse Ox 99 06/19/23 06:30 FiO2 Laboratory Last Values WBC 4.5 k/uL (3.8-10.6) 06/17/23 21:45 RBC 4.78 m/uL (4.30-5.90) 06/17/23 21:45 Hgb 15.5 gm/dL (13.0-17.5) 06/17/23 21:45 Hct 43.5 % (39.0-53.0) 06/17/23 21:45 MCV 91.0 fL (80.0-100.0) 06/17/23 21:45 MCH 32.4 pg (25.0-35.0) 06/17/23 21:45 MCHC 35.6 g/dL (31.0-37.0) 06/17/23 21:45 RDW 12.9 % (11.5-15.5) 06/17/23 21:45 Plt Count 177 k/uL (150-450) 06/17/23 21:45 MPV 8.4 06/17/23 21:45 Neutrophils % 53 % 06/17/23 21:45 Lymphocytes % 32 % 06/17/23 21:45 Monocytes % 6 % 06/17/23 21:45 Eosinophils % 6 % 06/17/23 21:45 Basophils % 2 % 06/17/23 21:45 Neutrophils # 2.4 k/uL (1.3-7.7) 06/17/23 21:45 Lymphocytes # 1.4 k/uL (1.0-4.8) 06/17/23 21:45 Monocytes # 0.3 k/uL (0-1.0) 06/17/23 21:45 Eosinophils # 0.3 k/uL (0-0.7) 06/17/23 21:45 Basophils # 0.1 k/uL (0-0.2) 06/17/23 21:45 Sodium 137 mmol/L (137-145) 06/19/23 10:54 Potassium 4.3 mmol/L (3.5-5.1) 06/19/23 10:54 Chloride 104 mmol/L (98-107) 06/19/23 10:54 Carbon Dioxide 26 mmol/L (22-30) 06/19/23 10:54 Anion Gap 7 mmol/L 06/19/23 10:54 BUN 8 mg/dL (9-20) L 06/19/23 10:54 Creatinine 0.71 mg/dL (0.66-1.25) 06/19/23 10:54 Est GFR (CKD-EPI)AfAm >90 (>60 ml/min/1.73 sqM) 06/19/23 10:54 Est GFR (CKD-EPI)NonAf >90 (>60 ml/min/1.73 sqM) 06/19/23 10:54 Glucose 113 mg/dL (74-99) H 06/19/23 10:54 Calcium 9.6 mg/dL (8.4-10.2) 06/19/23 10:54 Urine Color Colorless 06/17/23 13:50 Urine Appearance Clear (Clear) 06/17/23 13:50 Urine pH 7.0 (5.0-8.0) 06/17/23 13:50 Ur Specific [place] 1.011 (1.001-1.035) 06/17/23 13:50 Urine Protein Negative (Negative) 06/17/23 13:50 Urine Glucose (UA) Negative (Negative) 06/17/23 13:50 Urine Ketones Negative (Negative) 06/17/23 13:50 Urine Blood Negative (Negative) 06/17/23 13:50 Urine Nitrite Negative (Negative) 06/17/23 13:50 Urine Bilirubin Negative (Negative) 06/17/23 13:50 Urine Urobilinogen <2.0 mg/dL (<2.0) 06/17/23 13:50 Ur Leukocyte Esterase Negative (Negative) 06/17/23 13:50 Urine Opiates Screen Not Detected (NotDetected) 06/17/23 13:50 Ur Oxycodone Screen Not Detected (NotDetected) 06/17/23 13:50 Urine Methadone Screen Not Detected (NotDetected) 06/17/23 13:50 Ur Barbiturates Screen Not Detected (NotDetected) 06/17/23 13:50 U Tricyclic Antidepress Not Detected (NotDetected) 06/17/23 13:50 Ur Phencyclidine Scrn Not Detected (NotDetected) 06/17/23 13:50 Ur Amphetamines Screen Not Detected (NotDetected) 06/17/23 13:50 U Methamphetamines Scrn Not Detected (NotDetected) 06/17/23 13:50 U Benzodiazepines Scrn Not Detected (NotDetected) 06/17/23 13:50 Urine Cocaine Screen Not Detected (NotDetected) 06/17/23 13:50 U Marijuana (THC) Screen Detected (NotDetected) H 06/17/23 13:50 SARS-CoV-2 (PCR) Not Detected (Not Detectd) 06/17/23 18:05 06/19/23 15:33 Psychiatric Evaluation Identifying Data: Mr. Parker is a 32 years old, single WM, who live in [place], [place] in an extended stay motel. He has lived at this place for 6 months. Chief Complaint: I feel suicidal History of Psychiatric Illness- The patient came to ER with complaints suicidal thoughts. He indicated that his suicidal thoughts started 2 months ago. He mentioned feeling depressed 5 months prior to that. The patient could not pin point any reason for his depression. He did mention that he stopped medications about a year ago. The patient reported social isolation, lack of motivation, anger, anxiety, paranoia, inability to maintain relationship, hopelessness, worthlessness, and thoughts of not being here. He had thoughts of getting weapon from his friend and shoot himself. He thought people were talking about him, watching him, plotting against him, wanting to hurt him. He would also hears voices coming from wall and saying negative things about him. He would hear more than one person voices talking about him. He mentioned that these hallucinations get worse when stops drinking. The patient noted that he is not Schizophrenic because he knows his mothers illness, who had mother schizophrenic and was in various hospital. A year ago, the patient was taking Zoloft 100, Wellbutrin 300, Seroquel 200 and Suboxone. He does not know the dose correctly. Past Psychiatric History: The patient first sought psychiatric services in 2006 with symptoms of depression and PDSD. The patient noted that he was the first notice the body of her sister, who committed suicide. He went to [facility] in [facility]. The patient went for out-pt treatment off and on since then. His first admission was in 2011 for depression and suicidal ideations. He has had 10-12 admissions since then for suicidal ideations and depression. His last admission was in 2021 to this hospital for suicidal ideations and depression. He noted that around this period he started hearing voices too. Past Medication History: The patient noted that he has only taken the medications listed above. He took Trazodone, which caused Priapism. Leading questions: The patient admitted to Depression and Anxiety. Admitted SI. Denied HI. Admitted to paranoia and auditory hallucinations. Drugs and alcohol history: The patient has abused Alcohol since age 14. He has had DTS in the past. He has used Opioid since 14. He still does opioid off and on but not when taking Suboxone. Denied any other drug abuse. Tobacco use: Vapes Nicotine. Past Medical history: Alcohol withdrawal Seizures. Family History of Psychiatric Disorder: Mother suffered from Schizophrenia. His was diagnosed with Schizophrenia Bipolar and Depression. She committed suicide. Social History and Family History: The patient was born and raised in [place], [place]. He grew up with one sibling. He finished HS. He has 2 years degree in social work. His longest job was 2 years with a [employer]. OTC: None Allergies: None. Objective: MSE: Alert and attentive. Orientation times three Dressed and Groomed: Appropriately. Pleasant and cooperative. Psychomotor Activity: Normal. Speech: Normal in tone, quality, and quantity. Mood: Depressed and Anxious. Affect: Sad, tearful SI or HI: Positive for suicidal ideations and plan. Denied Homicidal ideations. Perceptual disturbance: Patient has auditory hallucinations. Thought Content: Paranoid ideations. Thought Process: Normal. Cognition: Intact Judgment and Insight: Poor AIMS: Normal Labs: Non available, ordered. Diagnosis: Major Depressive Disorder severe with psychosis Alcohol dependence Opioid Dependence Plan and Recommendations: Continue current Medications. Decrease the dose till Detox is completed. Zoloft 25 mg po daily, Seroquel 50 mg. D/C Wellbutrin. Monitor MS and side effects of medications and adjust medications accordingly. Provide supportive psychotherapy and psychoeducation. . The patient provided Substance abuse counseling. Smoke cessation therapy. The patient to see a therapist on a regular basis once a week/ attend [facility]. CBC with Diff, CMP, TSH, Lipid Profile, HbA1c, EKG. Medication Consent with explanation of risk/benefits and side effects: Explained and obtained.
[2023-06-20] MEDS: IBUPROFEN 600 MG TAB PO PRN (06:54)
[2023-06-20] MEDS: SERTRALINE 25 MG TAB PO SCH (09:04)
[2023-06-20] MEDS: SERTRALINE 25 MG TAB PO STA (10:58)
--- NOTE | 2023-06-20 16:27 | P.PN ---
Progress Note - Text Progress Note Date: 06/20/23 In-Patient Follow-up Chief Complaint: I am better than yesterday Subjective: The patient noted that he has been feeling better today. He indicated taking two doses of Ativan since yesterday. He does not feel need to take Ativan anymore. He noted that he does not have any withdrawal symptoms. He wants Ativan to be discontinued. He has no side effects from medications. The doses of Zoloft and Seroquel will be titrated up. Wellbutrin will be added to the treatment. The patient noted that he is in the process of being excepted at [facility]. He has to tell them the potential discharge date. The patient was given Sunday as the possible discharge date. Leading questions: The patient admitted to Depression and Anxiety. Denied SI or HI. Denied symptoms consistent with psychosis Sleep and Appetite: Improved. Interim History: Behavioral Changes: PRN meds/isolation/restraints/ change in status: None. Change in medical condition: No change. Change in medications: No change. Side effects from Medications: None. Objective- MSE: Alert and attentive. Orientation times three. Dressed and Groomed: Appropriately. Pleasant and cooperative. Psychomotor Activity: Normal. Speech: Normal in tone, quality, and quantity. Mood: : Depression improved. Anxious. Affect: Consistent with mood. SI or HI: None. Perceptual disturbance: None. Thought Content: No paranoia or other delusional thinking noted. Thought Process: Normal. Cognition: Intact Judgment and Insight: Good AIMS: Normal. Labs: No new labs. Diagnosis: No change. Plan and recommendation: Continue current Medications. Monitor MS and side effects of medications and adjust medications accordingly. Provide supportive psychotherapy. The patient provided psychoeducation. The patient provided Substance abuse counseling. Smoke cessation therapy. The patient to continue attending the [facility]. Medication Consent with explanation of risk/benefits and side effects: Explained and obtained.
[2023-06-20] MEDS: QUEtiapine 100 MG TAB PO SCH (20:37)
[2023-06-20] MEDS: hydrOXYzine pamoate 25 MG CAP PO PRN (20:38)
[2023-06-20] MEDS ORDERED: QUEtiapine 50 MG TAB PO SCH (21:00)
[2023-06-21] MEDS: SERTRALINE 100 MG TAB PO SCH (08:43)
[2023-06-21] MEDS: QUEtiapine 100 MG TAB PO SCH (20:28)
--- NOTE | 2023-06-21 21:00 | P.PN ---
Progress Note - Text Progress Note Date: 06/21/23 In-Patient Follow-up Chief Complaint: I feel the same Subjective: The patient noted that he has been feeling the same. He wants his medications to be adjusted back to his previous level. The patient noted that he has submitted his paper work [place] for being placed in [place]. [facility] He wants. He wants his MS and alcohol dependence addressed at the same time to prevent any relapse. He also talked about his historic thoughts of killing the person, who got her sister involved in human trafficking. This happened two months ago. The patient had these thoughts in anger and rage after finding this out. He had no real intensions of hurting anyone. He has never entertained idea of hurting anyone. The patient has been compliant with treatment recommendations. He is attending [facility] and interacting staff and peers well. Leading questions: The patient admitted to Depression and Anxiety. Denied SI or HI. Denied symptoms consistent with psychosis Sleep and Appetite: Improved. Interim History: Behavioral Changes: PRN meds/isolation/restraints/ change in status: He use Hydroxyzine and Ativan for anxiety. Change in medical condition: No change. Change in medications: No change. Side effects from Medications: None. Objective- MSE: Alert and attentive. Orientation times three. Dressed and Groomed: Appropriately. Pleasant and cooperative. Psychomotor Activity: Normal. Speech: Normal in tone, quality, and quantity. Mood: : Depression, Anxious. Affect: Consistent with mood. SI or HI: None. Perceptual disturbance: None. Thought Content: No paranoia or other delusional thinking noted. Thought Process: Normal. Cognition: Intact Judgment and Insight: fair. AIMS: Normal. Labs: No new labs. Diagnosis: No change. Plan and recommendation: Continue current Medications. Increase Seroquel to 200 mg. Start Wellbutrin 150 po qam. Monitor MS and side effects of medications and adjust medications accordingly. Provide supportive psychotherapy. The patient provided psychoeducation. The patient provided Substance abuse counseling. Smoke cessation therapy. The patient to continue attending the [facility]. Medication Consent with explanation of risk/benefits and side effects: Explained and obtained.
[2023-06-22] MEDS: buPROPion SR 150 MG TABLET.ER PO SCH (08:34)
--- NOTE | 2023-06-22 14:15 | P.PN ---
Progress Note - Text Progress Note Date: 06/22/23 In-Patient Follow-up Chief Complaint: I am doing better Subjective: The patient noted that he has been doing fine. He feels better that the day he came in. The noted that depression is better but still not gone. He is not having suicidal thoughts. The patient has been attending [facility] and inter acting with staff and peers well. He does worry a little bit about his [facility]. He wants find out the status so he can make alternate plans. The patient noted that he is not using Ativan and feels comfortable without it. No side effets from medications noted. Leading questions: The patient admitted to Depression and Anxiety. Denied SI or HI. Denied symptoms consistent with psychosis Sleep and Appetite: Good. Interim History: Behavioral Changes: PRN meds/isolation/restraints/ change in status: None Change in medical condition: No change. Change in medications: No change. Side effects from Medications: None. Objective- MSE: Alert and attentive. Orientation times three. Dressed and Groomed: Appropriately. Pleasant and cooperative. Psychomotor Activity: Normal. Speech: Normal in tone, quality, and quantity. Mood: good. Affect: appropriate. SI or HI: None. Perceptual disturbance: None. Thought Content: No paranoia or other delusional thinking noted. Thought Process: Normal. Cognition: Intact Judgment and Insight: Good AIMS: Normal. Labs: No new labs Diagnosis: No change. Plan and recommendation: Continue current Medications. Monitor MS and side effects of medications and adjust medications accordingly. Provide supportive psychotherapy. The patient provided psychoeducation. The patient provided Substance abuse counseling. Smoke cessation therapy. The patient to continue attending the [facility]. Medication Consent with explanation of risk/benefits and side effects: Explained and obtained.
--- NOTE | 2023-06-23 10:50 | P.PN ---
Subjective Progress Note Date: 06/23/23 Patient Name: Geoffrey Parker Date of : 89 Patient Status: Inpatient Attending Provider: Tim Rosenberg Date: 06/23/23 Initialization Date: 06/22/23 14:14 Subjective data: Patient was approached in his room where he was laying in bed with sheet covers pulled all the way to half of his face Patient continues to stare at this health science writer but does not respond he mostly responded by moving his head in yes and now is signs When asked if he wanted to talk about anything patient declined When asked if he was okay patient shook his head up and down When asked if he needed anything else from me he denied Patient never verbalized it more during his interview Mental status examination reveals a young male who at this time was laying comf ortably in bed. Patient seems to be alert and oriented to place and person use seem to be able to understand the questions asked however patient chose not to interact at this time except with some nods Denies that he needs any other help at this time from this health science writer Reviewed the chart from Dr. Rosenberg Diagnosis: Major Depressive Disorder severe with psychosis Alcohol dependence Opioid Dependence Plan and Recommendations: Will continue with his current treatment plan Continue current Medications.. Zoloft 25 mg po daily, Seroquel 50 mg. D/C Wellbutrin. Monitor MS and side effects of medications and adjust medications accordingly. Provide supportive psychotherapy and psychoeducation. . Continue to provide substance abuse counseling. Smoke cessation therapy. The patient to see a therapist on a regular basis once a week/ attend [facility]. Continue to encourage the patient to participate on the [facility] and supportive care Efra Angel MD Objective - Vital Signs Vital signs: Vital Signs Temp 98.1 F 06/23/23 06:00 Pulse 62 06/23/23 06:00 Resp 16 06/23/23 06:00 BP 112/74 06/23/23 06:00 Pulse Ox 98 06/23/23 06:00 FiO2 - Labs CBC & Chem 7: 06/17/23 21:45 06/19/23 10:54
--- NOTE | 2023-06-24 11:47 | P.PN ---
Subjective Progress Note Date: 06/24/23 Patient Name: Geoffrey Parker Date of : 89 Patient Status: Inpatient Attending Provider: Tim Rosenberg Date: 06/24/23 Initialization Date: 06/22/23 14:14 Subjective data: the patient was seen chart was reviewed and case discussed with nursing staff The patient was much more cooperative today and verbal Patient stated that he is feeling much better He says that he is being detoxed from the alcohol He states that he is being homeless and that he is waiting for his rehab placement He states that the medication so far working well for him He denies any other issues or concerns at this time requiring attention Mental status examination: Reveals a middle-aged female who is obese Patient is verbal and remains coherent and relevant Affect at this time appears to be fair Patient is shabbily dressed and groomed Patient is cooperative during the interview Thought processes are goal directed sequential and logical Denies any suicidal ideations or plans at this time No paranoia or other delusional thinking noted Cognitively patient appears to be average Formal and operational judgment and insight are impaired No involuntary movements noted Diagnosis: Major Depressive Disorder severe with psychosis Alcohol dependence Opioid Dependence Plan and Recommendations: Will continue with his current treatment plan Continue current Medications.. Zoloft 25 mg po daily, Seroquel 50 mg. D/C Wellbutrin. Monitor MS and side effects of medications and adjust medications accordingly. Provide supportive psychotherapy and psychoeducation. . Continue to provide substance abuse counseling. Smoke cessation therapy. The patient to see a therapist on a regular basis once a week/ attend [facility]. Continue to encourage the patient to participate on the [facility] activities and supportive care Efra Angel MD Objective - Vital Signs Vital signs: Vital Signs Temp 98.1 F 06/23/23 06:00 Pulse 96 06/24/23 08:38 Resp 16 06/23/23 06:00 BP 134/83 06/24/23 08:38 Pulse Ox 98 06/23/23 06:00 FiO2 Intake & Output 06/23/23 06/24/23 06/24/23 18:59 06:59 18:59 Weight 92.079 kg - Labs CBC & Chem 7: 06/17/23 21:45 06/19/23 10:54
--- NOTE | 2023-06-25 14:45 | P.PN ---
Progress Note - Text Progress Note Date: 06/25/23 In-Patient Follow-up Chief Complaint: I am doing Subjective: The patient no complaints today. He has been accepted to go to a drug rehab tomorrow. The patient noted that his weekend was uneventful. He has been compliant with treatment recommendations. His participation in [facility] has been good. His interaction with peers and staff is good. Overall, patient had made good progress. Leading questions: The patient denied Depression and Anxiety. Denied SI or HI. Denied symptoms consistent with psychosis Sleep and Appetite: Good Interim History: Behavioral Changes: PRN meds/isolation/restraints/ change in status: None Change in medical condition: No change. Change in medications: No change. Side effects from Medications: None. Objective- MSE: Alert and attentive. Orientation times three. Dressed and Groomed: Appropriately. Pleasant and cooperative. Psychomotor Activity: Normal. Speech: Normal in tone, quality, and quantity. Mood: Good. Affect: Appropriate. SI or HI: None. Perceptual disturbance: None. Thought Content: No paranoia or other delusional thinking noted. Thought Process: Normal. Cognition: Intact Judgment and Insight: Good AIMS: Normal. Labs; No new Labs. Diagnosis: No change. Plan and recommendation: Continue current Medications. Monitor MS and side effects of medications and adjust Medications accordingly. Provide supportive psychotherapy. The patient provided psychoeducation. The patient provided Substance abuse counseling. Smoke cessation therapy. The patient to continue attending the [facility]. Medication Consent with explanation of risk/benefits and side effects: Explained and obtained.
[2023-06-26 07:36] VITALS: RESP 16; TEMP 98
[2023-06-26 08:25] VITALS: BP 131/82; PULSE 85
--- NOTE | 2023-06-26 15:02 | P.DS ---
Providers Date of admission: 06/18/23 14:12 Expected date of discharge: 06/26/23 Attending physician: Tim Rosenberg MD Consults: 06/18/23 14:30 Consult Physician Routine Consulting Provider: Cristela Physician Consult Reason/Comments: H&P and medical Do you want consulting provider notified?: Yes Primary care physician: Stated None - Discharge Diagnosis(es) (1) Major depressive disorder, recurrent, severe with psychotic features Status: Acute Priority: High (2) Alcohol dependence Status: Acute Priority: High (3) Opioid dependence Status: Acute Priority: Medium Health Concerns: Discharge Summary HPI: Identifying Data: Mr. Parker is a 32 years old, single WM, who live in [place], [place] in an extended stay motel. He has lived at this place for 6 months. Chief Complaint: I feel suicidal History of Psychiatric Illness- The patient came to ER with complaints suicidal thoughts. He indicated that his suicidal thoughts started 2 months ago. He mentioned feeling depressed 5 months prior to that. The patient could not pin point any reason for his depression. He did mention that he stopped medications about a year ago. The patient reported social isolation, lack of motivation, anger, anxiety, paranoia, inability to maintain relationship, hopelessness, worthlessness, and thoughts of not being here. He had thoughts of getting weapon from his friend and shoot himself. He thought people were talking about him, watching him, plotting against him, wanting to hurt him. He would also hears voices coming from wall and saying negative things about him. He would hear more than one person voices talking about him. He mentioned that these hallucinations get worse when stops drinking. The patient noted that he is not Schizophrenic because he knows his mothers illness, who had mother schizophrenic and was in various hospital. A year ago, the patient was taking Zoloft 100, Wellbutrin 300, Seroquel 200 and Suboxone. He does not know the dose correctly. Past Psychiatric History: The patient first sought psychiatric services in 2006 with symptoms of depression and PDSD. The patient noted that he was the first notice the body of her sister, who committed suicide. He went to [facility] in [place]. [place]. The patient went for out-pt treatment off and on since then. His first admission was in 2011 for depression and suicidal ideations. He has had 10-12 admissions since then for suicidal ideations and depression. His last admission was in 2021 to this hospital for suicidal ideations and depression. He noted that around this period he started hearing voices too. Past Medication History: The patient noted that he has only taken the medications listed above. He took Trazodone, which caused Priapism. Leading questions: The patient admitted to Depression and Anxiety. Admitted SI. Denied HI. Admitted to paranoia and auditory hallucinations. Drugs and alcohol history: The patient has abused Alcohol since age 14. He has had DTS in the past. He has used Opioid since 14. He still does opioid off and on but not when taking Suboxone. Denied any other drug abuse. Tobacco use: Vapes Nicotine. Past Medical history: Alcohol withdrawal Seizures. Hospital Course: Hospital Course: After admission, the patient was involved on pharmacotherapy. [facility] and individual psychotherapy. The patient was reinstated on his home medications. The medications were titrated to his previous levels He started showing improvement with this regimen. He attended [facility], interacted with staff and peers, and came for individual session. His depression improved. His outlook towards life improved. He took active interest in getting accepted in rehab program. He exhibited no suicidal or homicidal ideations. He made good improvement. He was stable to be discharged to a rehab program on 06/26/2023. MSE: Alert and attentive. Orientation times three Dressed and Groomed: Appropriately. Pleasant and cooperative. Psychomotor Activity: Normal. Speech: Normal in tone, quality, and quantity. Mood: Depressed and Anxious. Affect: Sad, tearful SI or HI: Positive for suicidal ideations and plan. Denied Homicidal ideations. Perceptual disturbance: Patient has auditory hallucinations. Thought Content: Paranoid ideations. Thought Process: Normal. Cognition: Intact Judgment and Insight: Poor . MSE: Dressed and Groomed: Appropriately. Pleasant and cooperative. Psychomotor Activity: Normal. Speech: Normal in tone, quality, and quantity. Mood: Depressed and Anxious. Affect: Sad, tearful SI or HI: Positive for suicidal ideations and plan. Denied Homicidal ideations. Perceptual disturbance: Patient has auditory hallucinations. Thought Content: Paranoid ideations. Thought Process: Normal. Cognition: Intact Judgment and Insight: Poor Diagnosis: Major Depressive Disorder severe with psychosis Alcohol dependence Opioid Dependence Plan: The patient to be discharged today. The patient has attained good improvement since admission. He is stable to be followed as an outpatient. The patient is not suicidal or Homicidal. He does not pose any harm to self or others. The patient remains at a greater risk of self-harm or harm to others than general population on a chronic basis due to psychiatric illness and substance abuse. The patient will continue taking following medication post discharge. The importance of medication compliance and maintaining regular appointments at psychiatric out-pt and PCP clinic was explained and encouraged. The patient was also advised to seek alcohol counseling and attend AA meetings. The understood and agreed with the recommendations. The patient has no guns or weapons in his possession. foot worker to arrange for and conduct family meeting to ensure safety upon discharge and answer any questions. The social work nurse to arrange for patients follow-up appointments at [facility] for psychiatric care along with follow-up with PCP. The patient provided psychoeducation. Advised to call 911 or go to nearest ED or call this hospital in case of acute worsening of symptomatology, severe side effects or having suicidal, homicidal thoughts and feeling unsafe at home. Plan - Discharge Summary Discharge Rx Participant: Yes New Discharge Prescriptions: New buPROPion SR [Wellbutrin SR] 300 mg PO DAILY 15 Days #30 tab QUEtiapine [SEROquel] 200 mg PO HS 15 Days #15 tab Sertraline [Zoloft] 100 mg PO DAILY 15 Days #15 tab Discharge Medication List QUEtiapine [SEROquel] 200 mg PO HS 15 Days #15 tab 06/25/23 [Rx] Sertraline [Zoloft] 100 mg PO DAILY 15 Days #15 tab 06/25/23 [Rx] buPROPion SR [Wellbutrin SR] 300 mg PO DAILY 15 Days #30 tab 06/25/23 [Rx] Follow up Appointment(s)/Referral(s): [facility] [Outside] - 06/26/23 11:00 am (Intake) [facility] [NON-STAFF] - 1 Week Patient Instructions/Handouts: Bipolar Disorder (DC), Depression (DC), Abuse of Alcohol (DC), Alcohol Withdrawal (DC) Activity/Diet/Wound Care/Special Instructions: Avoid the use of street drugs and alcohol. Take all prescriptions as prescribed. When you are in need of refills on your medications, please contact your medical provider and/or outpatient psychiatrist to have this done. Please go to scheduled outpatient appointment for aftercare treatment. If symptoms return or become worse, call the crisis line at and/or go to the nearest emergency room for evaluation. Discharge/Stand Alone Forms: AA Meetings [facility] 22 & 24 - [facility], AA Meetings [place] Discharge Disposition: HOME SELF-CARE
== END 2023-06-26 09:51 | disposition home or self-care (01) | DRG 751 ==
LOC: EC 12:33 → 3MHU 06-18 14:12
PROVIDERS: ADMIT Psychiatry & Neurology Psychiatry; ATTEND Psychiatry & Neurology Psychiatry
DX: F33.3 Major depressive disorder, recurrent, severe with psychotic symptoms (principal); F10.20 Alcohol dependence, uncomplicated; F11.20 Opioid dependence, uncomplicated; F31.9 Bipolar disorder, unspecified; F43.10 Post-traumatic stress disorder, unspecified; G47.00 Insomnia, unspecified; N48.30 Priapism, unspecified; R45.851 Suicidal ideations; Z59.00 Homelessness unspecified; E87.1 Hypo-osmolality and hyponatremia; Z60.4 Social exclusion and rejection; Z79.899 Other long term (current) drug therapy; Z81.8 Family history of other mental and behavioral disorders; Z11.52 Encounter for screening for COVID-19
CPT/HCPCS: 36415; 80048; 80306; 81003; 82075; 85025; 87635; 99291

== ENCOUNTER 2024-07-18 12:20 | Emergency (ER) | payer OTHER ==
[2024-07-18 12:25] VITALS: RESP 18
--- NOTE | 2024-07-18 12:33 | ED ---
Skin/Abscess/FB HPI - General Chief complaint: Skin/Abscess/Foreign Body Stated complaint: Abd/L arm rash Time Seen by Provider: 07/18/24 12:32 Source: patient, RN notes reviewed Mode of arrival: ambulatory Limitations: no limitations - History of Present Illness Initial comments: 33-year-old male presented the ER for evaluation of a rash. Patient reports for the past month he has noted a red scaly pruritic lesions to his arms and abdomen. He states he recently left [place] for rehabilitation of alcohol abuse. Patient has not tried anything on lesions as of current. He denies any fevers, chills, new exposures, shortness of breath, chest pain, dizziness, lightheadedness or other complaints at this time. - Related Data Previous Rx's Medication Instructions Recorded QUEtiapine [SEROquel] 200 mg PO HS 15 Days #15 tab 06/25/23 Sertraline [Zoloft] 100 mg PO DAILY 15 Days #15 tab 06/25/23 buPROPion SR [Wellbutrin SR] 300 mg PO DAILY 15 Days #30 tab 06/25/23 Hydrocortisone Cream 1 applic TOPICAL TID #28 gm 07/18/24 [Hydrocortisone 2.5% Cream] Allergies Allergy/AdvReac Type Severity Reaction Status Date / Time trazodone AdvReac Unknown Verified 07/18/24 12:25 Review of Systems ROS Statement: Those systems with pertinent positive or pertinent negative responses have been documented in the HPI. ROS Other: All systems not noted in ROS Statement are negative. Past Medical History Past Medical History: No Reported History History of Any Multi-Drug Resistant Organisms: None Reported Past Surgical History: No Surgical Hx Reported Past Psychological History: Bipolar, Depression, PTSD Smoking Status: Current every day smoker Past Alcohol Use History: Daily, Heavy, Occasional Past Drug Use History: None Reported - Past Family History Father Family Medical History: Diabetes Mellitus Mother Family Medical History: Myocardial Infarction ([place]) Additional Family Medical History / Comment(s): Mother of a heart attack General Exam - General Exam Comments Initial Comments: Visual Physical Exam Vital signs reviewed General: Well-appearing, nontoxic, no acute distress. Head: Normocephalic, atraumatic Eyes: PERRLA, EOMI ENT: Airway patent Chest: Nonlabored breathing Skin: Multiple scaly patches with underlying erythema to left forearm, normal skin tone Neuro: Alert and oriented 3 Musculoskeletal: No gross abnormalities Limitations: no limitations General appearance: alert, in no apparent distress Respiratory exam: Present: normal lung sounds bilaterally. Absent: respiratory distress, wheezes, rales, rhonchi, stridor Cardiovascular Exam: Present: regular rate, normal rhythm, normal heart sounds. Absent: systolic murmur, diastolic murmur, rubs, gallop, clicks Extremities exam: Present: normal inspection, full ROM, normal capillary refill. Absent: tenderness, pedal edema, joint swelling, calf tenderness Neurological exam: Present: alert, oriented X3, CN II-XII intact Skin exam: Present: warm, dry, intact, normal color, rash (Left forearm there are multiple rashes with erythematous base with overlying scaly appearance this is also noted to right antecubital fossa. ), other (No rash interdigital web.) Course Vital Signs 07/18/24 07/18/24 12:22 14:47 Temperature 97.7 F 98.1 F Pulse Rate 83 76 Respiratory 18 18 Rate Blood Pressure 125/84 120/78 O2 Sat by Pulse 98 98 Oximetry Medical Decision Making - Medical Decision Making I performed the quick note portion of this chart. Electronically signed by Sarina Rosas PA-C Was pt. sent in by a medical professional or institution (NEENA Chow, ALMOND BLANCHER OPERATOR, urgent care, hospital, or penitentiary...) When possible be specific @ -No Did you speak to anyone other than the patient for history (EMS, parent, family, police, friend...)? What history was obtained from this source @ -No Did you review nursing and triage notes (agree or disagree)? Why? @ -I reviewed and agree with nursing and triage notes Were old charts reviewed (outside hosp., previous admission, EMS record, old EKG, old radiological studies, urgent care reports/EKG's, penitentiary records)? Report findings @ -No old charts were reviewed Differential Diagnosis (chest pain, altered mental status, abdominal pain women, abdominal pain men, vaginal bleeding, weakness, fever, dyspnea, syncope, headache, dizziness, GI bleed, back pain, seizure, CVA, palpatations, mental health, musculoskeletal)? @ -Cellulitis, bug bite, psoriasis, scabies, Lyme's disease... This list is not meant to be all-inclusive EKG interpreted by me (3pts min.). @ -None done X-rays interpreted by me (1pt min.). @ -None done CT interpreted by me (1pt min.). @ -None done U/S interpreted by me (1pt. min.). @ -None done What testing was considered but not performed or refused? (CT, X-rays, U/S, labs)? Why? @ -None What meds were considered but not given or refused? Why? @ -None Did you discuss the management of the patient with other professionals (professionals i.e. , PA, ALMOND BLANCHER OPERATOR, lab, RT, psych nurse, clinical social worker, sport intern, teacher, ambulance officer, family caseworker)? Give summary @ -No Was smoking cessation discussed for >3mins.? @ -No Was critical care preformed (if so, how long)? @ -No Were there social determinants of health that impacted care today? How? (Homelessness, low income, unemployed, alcoholism, drug addiction, transportation, low edu. Level, literacy, decrease access to med. care, penitentiary, rehab)? @ -Patient recently released from rehabilitation for alcohol abuse. Patient is currently uninsured, this limits patient's ability to follow-up outpatient. Was there de-escalation of care discussed even if they declined (Discuss DNR or withdrawal of care, Hospice)? DNR status @ -No What co-morbidities impacted this encounter? (DM, HTN, Smoking, COPD, CAD, Cancer, CVA, ARF, Chemo, Hep., AIDS, mental health diagnosis, sleep apnea, morbid obesity)? @ -None Was patient admitted / discharged? Hospital course, mention meds given and route, prescriptions, significant lab abnormalities, going to OR and other pertinent info. @ -Discharge. 33-year-old male presented the ER for evaluation of a rash. Vital signs stable. Exam remarkable for a erythematous base rash with overlying white scaly appearance to left forearm and right antecubital fossa. There is no rash noted to interdigital webs. Patient does admit rashes pruritic. Rash concerning of possible psoriasis for which patient will be started on hydrocortisone cream and advised to follow-up with PCP and dermatology. Referrals given for local PCPs and residency clinics. Patient discharged with hydrocortisone cream as he states he is uninsured and unable to afford prescription at pharmacy. Strict return parameters discussed. Patient discharged in stable condition. Patient verbally expressed understand agree with care plan. Case discussed with ED attending of Dr. Santa. Undiagnosed new problem with uncertain prognosis? @ -No Drug Therapy requiring intensive monitoring for toxicity (Heparin, Nitro, Insulin, Cardizem)? @ -No Were any procedures done? @ -No Diagnosis/symptom? @ -Rash Acute, or Chronic, or Acute on Chronic? @ -Acute Uncomplicated (without systemic symptoms) or Complicated (systemic symptoms)? @ -Uncomplicated Side effects of treatment? @ -No Exacerbation, Progression, or Severe Exacerbation? @ -No Poses a threat to life or bodily function? How? (Chest pain, [place], [place], pneumonia, PE, COPD, DKA, ARF, appy, cholecystitis, CVA, Diverticulitis, Homicidal, Suicidal, threat to staff... and all critical care pts) @ -Unlikely Disposition Clinical Impression: Rash Disposition: HOME SELF-CARE Condition: Stable Additional Instructions: Follow-up closely with PCP and a residency clinic. Return to the ER for any new or worsening concerns. Prescriptions: Hydrocortisone Cream [Hydrocortisone 2.5% Cream] 1 applic TOPICAL TID #28 gm Is patient prescribed a controlled substance at d/c from ED?: No Referrals: [facility] [NON-STAFF] - 1-2 days (Contact a primary care office to become established with a provider. ) [facility] [NON-STAFF] - 1-2 days None,Stated [Primary Care Provider] - 1-2 days Forms: Area PCPs Time of Disposition: 14:01
[2024-07-18] MEDS: TRIAMCINOLONE ACET 0.1% OINTMENT 15 GM TUBE TOPICAL STA (14:46)
[2024-07-18 14:48] VITALS: BP 120/78; PULSE 76; TEMP 98.1
== END 2024-07-18 14:48 | disposition home or self-care (01) ==
LOC: EC 12:20
DX: R21 Rash and other nonspecific skin eruption (principal); F17.200 Nicotine dependence, unspecified, uncomplicated; Z88.8 Allergy status to other drugs, medicaments and biological substances
CPT/HCPCS: 99282

== ENCOUNTER 2024-07-23 07:54 | Emergency (ER) | payer OTHER ==
[2024-07-23 08:02] VITALS: TEMP 98
[2024-07-23] MEDS: ACETAMINOPHEN TAB 325 MG TAB PO STA (08:44)
[2024-07-23] MEDS: IBUPROFEN 600 MG TAB PO STA (08:45)
--- NOTE | 2024-07-23 08:56 | ED ---
ENT HPI - General Chief complaint: ENT Stated complaint: sore throat Time Seen by Provider: 07/23/24 07:55 Source: patient, RN notes reviewed Mode of arrival: ambulatory Limitations: no limitations - History of Present Illness Initial comments: 33-year-old male presents emerged part complaint of sore throat. Patient states has been present for last 5 to 6 days. Patient states she has had on and off suspected fever, chills minimal congestion no significant cough or productive symptoms no nausea vomiting. - Related Data Previous Rx's Medication Instructions Recorded QUEtiapine [SEROquel] 200 mg PO HS 15 Days #15 tab 06/25/23 Sertraline [Zoloft] 100 mg PO DAILY 15 Days #15 tab 06/25/23 buPROPion SR [Wellbutrin SR] 300 mg PO DAILY 15 Days #30 tab 06/25/23 Hydrocortisone Cream 1 applic TOPICAL TID #28 gm 07/18/24 [Hydrocortisone 2.5% Cream] Amoxicillin 500 mg PO Q8H #30 capsule 07/23/24 Allergies Allergy/AdvReac Type Severity Reaction Status Date / Time trazodone AdvReac Unknown Verified 07/18/24 12:25 Review of Systems ROS Statement: Those systems with pertinent positive or pertinent negative responses have been documented in the HPI. ROS Other: All systems not noted in ROS Statement are negative. Past Medical History Past Medical History: No Reported History History of Any Multi-Drug Resistant Organisms: None Reported Past Surgical History: No Surgical Hx Reported Past Psychological History: Bipolar, Depression, PTSD Smoking Status: Current every day smoker Past Alcohol Use History: Daily, Heavy, Occasional Past Drug Use History: None Reported - Past Family History Father Family Medical History: Diabetes Mellitus Mother Family Medical History: Myocardial Infarction ([place]) Additional Family Medical History / Comment(s): Mother of a heart attack General Exam Limitations: no limitations General appearance: alert, in no apparent distress Head exam: Present: atraumatic, normocephalic, normal inspection Eye exam: Present: normal appearance, PERRL, EOMI. Absent: scleral icterus, conjunctival injection, periorbital swelling ENT exam: Present: mucous membranes moist. Absent: normal exam, normal oropharynx (Erythema posterior pharynx) Neck exam: Present: normal inspection, full ROM. Absent: tenderness, meningismus, lymphadenopathy Respiratory exam: Present: normal lung sounds bilaterally. Absent: respiratory distress, wheezes, rales, rhonchi, stridor Course Vital Signs 07/23/24 07:59 Temperature 98 F Pulse Rate 90 Respiratory 20 Rate Blood Pressure 121/84 O2 Sat by Pulse 98 Oximetry Medical Decision Making - Medical Decision Making Was pt. sent in by a medical professional or institution (NEENA Chow, SAFETY SCIENTIST, urgent care, hospital, or long-term...) When possible be specific @ -No Did you speak to anyone other than the patient for history (EMS, parent, family, police, friend...)? What history was obtained from this source @ -No Did you review nursing and triage notes (agree or disagree)? Why? @ -I reviewed and agree with nursing and triage notes Were old charts reviewed (outside hosp., previous admission, EMS record, old EKG, old radiological studies, urgent care reports/EKG's, long-term records)? Report findings @ -No old charts were reviewed Differential Diagnosis (chest pain, altered mental status, abdominal pain women, abdominal pain men, vaginal bleeding, weakness, fever, dyspnea, syncope, headache, dizziness, GI bleed, back pain, seizure, CVA, palpatations, mental health, musculoskeletal)? @ -Acute pharyngitis, tonsillitis, mono EKG interpreted by me (3pts min.). @ -None X-rays interpreted by me (1pt min.). @ -None done CT interpreted by me (1pt min.). @ -None done U/S interpreted by me (1pt. min.). @ -None done What testing was considered but not performed or refused? (CT, X-rays, U/S, labs)? Why? @ -None What meds were considered but not given or refused? Why? @ -None Did you discuss the management of the patient with other professionals (professionals i.e. NEENA Chow, SAFETY SCIENTIST, lab, RT, psych nurse, social service worker, sea kayaking guide, teacher, staff submarine warfare officer, case briefer)? Give summary @ -No Was smoking cessation discussed for >3mins.? @ -No Was critical care preformed (if so, how long)? @ -No Were there social determinants of health that impacted care today? How? (Homelessness, low income, unemployed, alcoholism, drug addiction, transportation, low edu. Level, literacy, decrease access to med. care, intermediate, rehab)? @ -No Was there de-escalation of care discussed even if they declined (Discuss DNR or withdrawal of care, Hospice)? DNR status @ -No What co-morbidities impacted this encounter? (DM, HTN, Smoking, COPD, CAD, Cancer, CVA, ARF, Chemo, Hep., AIDS, mental health diagnosis, sleep apnea, morbid obesity)? @ -None Was patient admitted / discharged? Hospital course, mention meds given and rou te, prescriptions, significant lab abnormalities, going to OR and other pertinent info. @ -Discharged patient is strep pharyngitis positive. Patient be discharged on X return for as discussed. Undiagnosed new problem with uncertain prognosis? @ -No Drug Therapy requiring intensive monitoring for toxicity (Heparin, Nitro, Insulin, Cardizem)? @ -No Were any procedures done? @ -No Diagnosis/symptom? @ -Acute pharyngitis strep Acute, or Chronic, or Acute on Chronic? @ -Acute Uncomplicated (without systemic symptoms) or Complicated (systemic symptoms)? @ -Uncomplicated Side effects of treatment? @ -No Exacerbation, Progression, or Severe Exacerbation? @ -No Poses a threat to life or bodily function? How? (Chest pain, [place], [place], pneumonia, PE, COPD, DKA, ARF, appy, cholecystitis, CVA, Diverticulitis, Homicidal, Suicidal, threat to staff... and all critical care pts) @ -No - Lab Data Lab Results 07/23/24 Range/Units 08:05 Group A Strep (PCR) DETECTED A (Not Detectd) Disposition Clinical Impression: Acute streptococcal pharyngitis Disposition: HOME SELF-CARE Condition: Stable Instructions (If sedation given, give patient instructions): Strep Throat (ED) Additional Instructions: Please return to the Emergency Department if symptoms worsen or any other concerns. Prescriptions: Amoxicillin 500 mg PO Q8H #30 capsule Is patient prescribed a controlled substance at d/c from ED?: No Referrals: None,Stated [Primary Care Provider] - 1-2 days Time of Disposition: 08:56
[2024-07-23 09:13] VITALS: BP 120/79; PULSE 88; RESP 18
== END 2024-07-23 09:14 | disposition home or self-care (01) ==
LOC: EC 07:54
DX: J02.0 Streptococcal pharyngitis (principal); F17.200 Nicotine dependence, unspecified, uncomplicated
CPT/HCPCS: 87651; 99283